=== PATIENT | female | born 1990 | race Caucasian/White ===

== ENCOUNTER 2017-11-15 11:48 | Emergency (ER) | payer MEDICAID, OTHER ==
[~2017-11-15] VITALS: Ht 180.3 cm; Wt 83.5 kg
[~2017-11-15 11:48] MED LIST: ADDE30TA PO; LORT5TAB PO; MELO15TA2 PO; ROBA750T3 PO
[2017-11-15 11:54] VITALS: BP 124/70; PULSE 99; RESP 20; TEMP 98.4; O2SAT 97
--- NOTE | 2017-11-15 12:06 | PD ---
HPI Chief Complaint: Cold / Flu Symptoms Time Seen by Provider: 11:58 Travel History International Travel<30 days: No Contact w/Intl Traveler<30days: No Traveled to known affect area: No History of Present Illness HPI 27-year-old female presents to the emergency department for evaluation of flulike symptoms that started Saturday night. Patient reports body aches, cough, sore throat, low-grade fevers. Patient is on vacation from [place]. She denies stating that she is on her menstrual cycle now. She has no chronic medical problems and takes no prescribed medications. No exacerbating or alleviating factors. Mild severity. PFSH Past Medical History ADHD: Yes Diminished Hearing: No ?: Not LMP: 11/15/17 Past Surgical History Oral Surgery: Yes (WISDOM TEETH) Tonsillectomy: Yes Social History Alcohol Use: Yes (OCC) Tobacco Use: No Substance Use: No Allergies-Medications (Allergen,Severity, Reaction): Coded Allergies: No Known Allergies (Verified Adverse Reaction, Unknown, 11/15/17) Reported Meds & Prescriptions Reported Meds & Active Scripts Active No Active Prescriptions or Reported Medications Review of Systems Except as stated in HPI: all other systems reviewed are Neg Physical Exam Narrative GENERAL: Well-nourished, well-developed female patient, afebrile SKIN: Focused skin assessment warm/dry. HEAD: Normocephalic. Atraumatic ENT: Mucosa pink and moist. No erythema or exudates. No uvular edema. No uvular , palatal, or tonsillar deviation. Airway patent. Nasal turbinates appear normal without nasal blood, purulent drainage or septal hematoma. Bilateral tympanic membranes clear without erythema or perforation. EYES: No scleral icterus. No injection or drainage. NECK: Supple, trachea midline. No JVD or lymphadenopathy. CARDIOVASCULAR: Regular rate and rhythm without murmurs, gallops, or rubs. RESPIRATORY: Breath sounds equal bilaterally. No accessory muscle use. Lung sounds are clear to auscultation. GASTROINTESTINAL: Abdomen soft, non-tender, nondistended. MUSCULOSKELETAL: No cyanosis, or edema. BACK: Nontender without obvious deformity. No CVA tenderness. Data Data Last Documented VS Vital Signs Date Time Temp Pulse Resp B/P (MAP) Pulse Ox O2 Delivery O2 Flow Rate FiO2 11/15/17 12:05 Room Air 11/15/17 11:54 98.4 99 20 124/70 (88) 97 Orders Orders Group A Rapid Strep Screen (11/15/17 12:03) Influenzae A/B Antigen (11/15/17 12:03) Strep Culture (Group A) (11/15/17 12:10) MDM Medical Decision Making Medical Screen Exam Complete: Yes Emergency Medical Condition: Yes Medical Record Reviewed: Yes Differential Diagnosis Strep pharyngitis versus influenza versus URI versus viral syndrome Narrative Course 27-year-old female presents to the emergency department for evaluation of flulike symptoms. She appears well on exam. Influenza and strep swabs are ordered and pending. Influenza is negative. Strep is negative. Symptoms are consistent with viral syndrome. She is instructed to rest, drink plenty of fluids, Tylenol as Motrin [id number] as needed and follow-up with her primary care physician. The patient was discharged in stable condition with instructions, including return instructions and follow up instructions. Diagnosis Primary Impression: Viral URI Referrals: Primary Care Physician call for appointment Patient Instructions: General Instructions, Upper Respiratory Infection (ED) Additional Instructions: [id number] Tylenol every 4 hours as needed, [id number] ibuprofen every 6-8 hours as needed. Rest. Drink plenty of fluids. Follow-up with a primary care physician. Return to the emergency department for any acute worsening of symptoms. Med/Other Pt SpecificInfo: No Change to Meds Scripts No Active Prescriptions or Reported Meds Disposition: 01 DISCHARGE HOME Condition: Stable Laila Rae AMARI Nov 15, 2017 12:06
== END 2017-11-15 13:00 | disposition home or self-care (01) ==
LOC: PHEFT 11:48
DX: J06.9 Acute upper respiratory infection, unspecified (principal); F90.9 Attention-deficit hyperactivity disorder, unspecified type
CPT/HCPCS: 87081; 87804; 87880; 99283